=== PATIENT | female | born 1965 | race Caucasian/White ===

== ENCOUNTER → 2018-03-09 12:35 | Outpatient (CLI) | payer MEDICARE, MEDICAID ==
[~2018-03-09 12:35] MED LIST: ADVAIR 250/501 DISK INH; ASPIRIN325 MG PO; BACTRIM DS TABL1 TAB PO; NORCO 7.5/325 T1 TA1 PO; NORCO-7.5 PO; PROAIR HFA8.5 GM INH; VIBRAMYCIN 100100 MG PO
[2018-04-18 17:44] VITALS: BMI 30.3
== END | disposition home or self-care (01) ==
LOC: D.MRI 12:35
DX: M79.671 Pain in right foot (principal)

== ENCOUNTER 2018-04-18 05:07 | Inpatient (IN) | payer MEDICARE, MEDICAID ==
[2018-03-26 12:04] LABS: HEMATOCRIT 47.1 % (36.0-48.0); HEMOGLOBIN 16.1 g/dL (12-16); MCH 31.9 pg (26.0-34.0); MCHC 34.2 g/dL (31.0-37.0); MCV 93.5 fL (80.0-100.0); MEAN PLATELET VOLUME 10.6 fL (7.4-10.4); RBC 5.04 10x6/uL (4.00-5.40); RDW 13.7 % (11.5-14.5); WBC 9.9 10x3/uL (4.8-10.8)
[~2018-04-18] VITALS: Ht 147.3 cm; Wt 65.9 kg
[~2018-04-18 05:07] MED LIST changes: -ASPIRIN325 MG PO; -BACTRIM DS TABL1 TAB PO; -NORCO 7.5/325 T1 TA1 PO; -NORCO-7.5 PO; -VIBRAMYCIN 100100 MG PO
[2018-04-18 05:24] LABS: HEMATOCRIT 42.6 % (36.0-48.0); HEMOGLOBIN 14.6 g/dL (12-16); MCH 31.9 pg (26.0-34.0); MCHC 34.3 g/dL (31.0-37.0); MCV 93.2 fL (80.0-100.0); MEAN PLATELET VOLUME 10.4 fL (7.4-10.4); RBC 4.57 10x6/uL (4.00-5.40); RDW 13.8 % (11.5-14.5); WBC 14.2 10x3/uL (4.8-10.8)
[2018-04-18 06:50] LABS: BASOPHILS 0.4 % (0-2); EOSINOPHILS 1.9 % (0-7); IMMATURE GRANULOCYTES 0.9 % (0-5); LYMPHOCYTES 29.9 % (15-50); MCH 31.2 pg (26.0-34.0); MCHC 33.3 g/dL (31.0-37.0); MCV 93.5 fL (80.0-100.0); MEAN PLATELET VOLUME 10.6 fL (7.4-10.4); MONOCYTES 8.9 % (2-11); PLATELET COUNT 259 10x3/uL (130-400); RBC 4.49 10x6/uL (4.00-5.40); RDW 13.8 % (11.5-14.5); WBC 12.9 10x3/uL (4.8-10.8)
[2018-04-18 07:55] VITALS: BP 150/71; BMI 30.5
[2018-04-18 14:08] VITALS: BP 113/62
[2018-04-18 16:12] LABS: ANION GAP 12.2 mmol/L (8-16); CARBON DIOXIDE 26.9 mmol/L (21.0-32.0); POTASSIUM - SERUM 4.1 mmol/L (3.5-5.1)
[2018-04-18 16:39] VITALS: BP 102/54
[2018-04-18 17:44] VITALS: BP 102/54; Ht 147.3 cm; Wt 65.9 kg
[2018-04-18 20:00] VITALS: BP 94/54
[2018-04-19 04:00] VITALS: BP 125/79
[2018-04-19 06:02] LABS: BASOPHILS 0.1 % (0-2); EOSINOPHILS 0 % (0-7); HEMATOCRIT 35.9 % (36.0-48.0); HEMOGLOBIN 11.7 g/dL (12-16); IMMATURE GRANULOCYTES 0.4 % (0-5); LYMPHOCYTES 14.2 % (15-50); MCH 30.9 pg (26.0-34.0); MCHC 32.6 g/dL (31.0-37.0); MCV 94.7 fL (80.0-100.0); MONOCYTES 10.8 % (2-11); NEUTROPHILS 74.5 % (40-80); PLATELET COUNT 252 10x3/uL (130-400); RBC 3.79 10x6/uL (4.00-5.40); WBC 14.1 10x3/uL (4.8-10.8)
[2018-04-19 06:24] LABS: ALBUMIN 2.7 g/dL (3.4-5.0); ALKALINE PHOSPHATASE 41 U/L (46-116); ALT (SGPT) 15 U/L (10-68); BILIRUBIN - TOTAL 0.29 mg/dL (0.2-1.3); CALC OSMOLALITY 283 mosm/kg (275-300); CALCIUM 8.2 mg/dL (8.5-10.1); CARBON DIOXIDE 31.1 mmol/L (21.0-32.0); CHLORIDE - SERUM 104 mmol/L (98-107); CREATININE - SERUM 0.8 mg/dL (0.6-1.3); POTASSIUM - SERUM 3.9 mmol/L (3.5-5.1); PROTEIN - SERUM 5.9 g/dL (6.4-8.2); SODIUM 140 mmol/L (136-145); UREA NITROGEN 20 mg/dL (7-18); eGFR NON AFRICAN AMERICAN 79 mL/min (90-120)
[2018-04-19 06:26] LABS: GLUCOSE 132 mg/dL (74-106)
[2018-04-19 21:00] VITALS: BP 99/80
[2018-04-20 04:00] VITALS: BP 117/72
[2018-04-20 06:36] LABS: ALBUMIN 2.6 g/dL (3.4-5.0); ALKALINE PHOSPHATASE 44 U/L (46-116); ALT (SGPT) 12 U/L (10-68); BILIRUBIN - TOTAL 0.34 mg/dL (0.2-1.3); CALCIUM 8.3 mg/dL (8.5-10.1); CARBON DIOXIDE 30.1 mmol/L (21.0-32.0); CHLORIDE - SERUM 105 mmol/L (98-107); CREATININE - SERUM 0.7 mg/dL (0.6-1.3); PROTEIN - SERUM 5.9 g/dL (6.4-8.2); SODIUM 140 mmol/L (136-145); UREA NITROGEN 16 mg/dL (7-18); VANCOMYCIN - TROUGH 6.1 ug/mL (10.0-20.0); eGFR NON AFRICAN AMERICAN > 90 mL/min (90-120)
[2018-04-20 06:39] LABS: CALC OSMOLALITY 278 mosm/kg (275-300); GLUCOSE 82 mg/dL (74-106)
[2018-04-20 07:21] LABS: BASOPHILS 0.6 % (0-2); EOSINOPHILS 2.5 % (0-7); HEMATOCRIT 34.9 % (36.0-48.0); HEMOGLOBIN 11.2 g/dL (12-16); LYMPHOCYTES 31.6 % (15-50); MCH 30.7 pg (26.0-34.0); MCHC 32.1 g/dL (31.0-37.0); MCV 95.6 fL (80.0-100.0); MEAN PLATELET VOLUME 11.1 fL (7.4-10.4); MONOCYTES 13.2 % (2-11); NEUTROPHILS 51.1 % (40-80); PLATELET COUNT 248 10x3/uL (130-400); RBC 3.65 10x6/uL (4.00-5.40); RDW 14.4 % (11.5-14.5); WBC 12.5 10x3/uL (4.8-10.8)
[2018-04-20 13:18] VITALS: BP 134/76
[2018-04-20 16:08] VITALS: BP 131/69
[2018-04-20 20:00] VITALS: BP 107/59
[2018-04-21 04:00] VITALS: BP 140/67
[2018-04-21 06:25] LABS: BASOPHILS 0.3 % (0-2); EOSINOPHILS 4.4 % (0-7); HEMATOCRIT 37.1 % (36.0-48.0); IMMATURE GRANULOCYTES 1.3 % (0-5); LYMPHOCYTES 25.9 % (15-50); MCH 31.1 pg (26.0-34.0); MCHC 32.3 g/dL (31.0-37.0); MCV 96.1 fL (80.0-100.0); MEAN PLATELET VOLUME 11.2 fL (7.4-10.4); MONOCYTES 12.3 % (2-11); NEUTROPHILS 55.8 % (40-80); PLATELET COUNT 273 10x3/uL (130-400); RBC 3.86 10x6/uL (4.00-5.40); RDW 14.2 % (11.5-14.5); WBC 11.5 10x3/uL (4.8-10.8)
[2018-04-21 07:02] LABS: ALBUMIN 2.7 g/dL (3.4-5.0); ALKALINE PHOSPHATASE 49 U/L (46-116); BILIRUBIN - TOTAL 0.29 mg/dL (0.2-1.3); CALC OSMOLALITY 281 mosm/kg (275-300); CALCIUM 8.6 mg/dL (8.5-10.1); CARBON DIOXIDE 34.2 mmol/L (21.0-32.0); CHLORIDE - SERUM 103 mmol/L (98-107); CREATININE - SERUM 0.6 mg/dL (0.6-1.3); GLUCOSE 92 mg/dL (74-106); POTASSIUM - SERUM 4.4 mmol/L (3.5-5.1); PROTEIN - SERUM 5.9 g/dL (6.4-8.2); SODIUM 141 mmol/L (136-145); UREA NITROGEN 15 mg/dL (7-18); eGFR NON AFRICAN AMERICAN > 90 mL/min (90-120)
[2018-04-21 07:03] LABS: ALT (SGPT) 16 U/L (10-68)
[2018-04-21 07:59] VITALS: BP 138/67
[2018-04-21] MEDS ORDERED: NORCO-7.5 PO (10:32)
[2018-04-21] MEDS ORDERED: VIBRAMYCIN 100100 MG PO (10:33)
[2018-04-21] MEDS ORDERED: BACTRIM DS TABL1 TAB PO (10:34)
[2018-04-21] MEDS ORDERED: ASPIRIN325 MG PO (10:37)
[2018-04-21] MEDS ORDERED: NORCO 7.5/325 T1 TA1 PO (13:45)
== END 2018-04-21 15:24 | DRG 493 ==
LOC: D.MS 05:07 → D.OPS 05:07 → D.MS 13:34 → D.OPS 13:36 → D.MS 13:36
PROVIDERS: Anesthesiology; Family Medicine; Orthopaedic Surgery
PROC: 0SGH04Z Fusion of Right Tarsal Joint with Internal Fixation Device, Open Approach (ICD-10-PCS; 2018-04-18)
PROC: 0QPL04Z Removal of Internal Fixation Device from Right Tarsal, Open Approach (ICD-10-PCS; 2018-04-18)
PROC: 0SGF0ZZ (ICD-10-PCS; 2018-04-18)
PROC: 0SGH07Z Fusion of Right Tarsal Joint with Autologous Tissue Substitute, Open Approach (ICD-10-PCS; principal; 2018-04-18 07:30)
PROC: 0QBJ0ZZ Excision of Right Fibula, Open Approach (ICD-10-PCS; 2018-04-18 07:30)
DX: M19.171 Post-traumatic osteoarthritis, right ankle and foot (principal); F17.203 Nicotine dependence unspecified, with withdrawal; G47.33 Obstructive sleep apnea (adult) (pediatric); I10 Essential (primary) hypertension; F32.9 Major depressive disorder, single episode, unspecified; F41.0 Panic disorder [episodic paroxysmal anxiety]; R73.03 Prediabetes

== ENCOUNTER → 2019-08-02 08:12 | Outpatient (CLI) | payer MEDICARE, MEDICAID ==
[2018-04-18 17:44] VITALS: BMI 30.3
[~2019-08-02 08:12] MED LIST changes: +ASPIRIN325 MG PO; +BACTRIM DS TABL1 TAB PO; +NORCO 7.5/325 T1 TA1 PO; +NORCO-7.5 PO; +VIBRAMYCIN 100100 MG PO
[2019-08-02 10:21] LABS: ERYTHROCYTE SEDIMENTATION RATE 14 mm/hr (0-30)
[2019-08-02 10:25] LABS: BASOPHILS 0.8 % (0-2); EOSINOPHILS 2.4 % (0-7); HEMATOCRIT 45.5 % (36.0-48.0); HEMOGLOBIN 15.3 g/dL (12-16); IMMATURE GRANULOCYTES 0.6 % (0-5); LYMPHOCYTES 26.8 % (15-50); MCH 31.4 pg (26.0-34.0); MCHC 33.6 g/dL (31.0-37.0); MCV 93.4 fL (80.0-100.0); MEAN PLATELET VOLUME 10.8 fL (7.4-10.4); MONOCYTES 9.2 % (2-11); NEUTROPHILS 60.2 % (40-80); RBC 4.87 10x6/uL (4.00-5.40); RDW 13.9 % (11.5-14.5); WBC 10.6 10x3/uL (4.8-10.8)
[2019-08-02 10:27] LABS: PLATELET COUNT 373 10x3/uL (130-400)
== END | disposition home or self-care (01) ==
LOC: D.NM 08:12 → D.LAB 08:30
PROVIDERS: ATTEND Orthopaedic Surgery
DX: M84.361A Stress fracture, right tibia, initial encounter for fracture (principal)

== ENCOUNTER → 2021-01-21 09:47 | Outpatient (CLI) | payer MEDICARE, MEDICAID ==
[2018-04-18 17:44] VITALS: BMI 30.3
== END | disposition home or self-care (01) ==
LOC: D.CT 01-07 11:00
PROVIDERS: ATTEND Orthopaedic Surgery
DX: M19.071 Primary osteoarthritis, right ankle and foot (principal)